=== PATIENT | female | born 1975 | race Caucasian/White ===

== ENCOUNTER 2020-01-13 14:29 | Emergency (ER) | payer OTHER ==
[~2020-01-13] VITALS: Ht 160 cm; Wt 81.6 kg
[2020-01-13 14:42] VITALS: BP 128/77
== END 2020-01-13 15:21 | disposition home or self-care (01) ==
LOC: ER 14:37
DX: L03.211 Cellulitis of face (principal)

== ENCOUNTER 2021-04-06 19:21 | Emergency (ER) | payer OTHER ==
[~2021-04-06] VITALS: Ht 160 cm; Wt 81.6 kg
--- NOTE | 2021-04-06 19:45 | NUR ---
PT BIBS C/O SOB COUGH, FEVER, BODY ACHES, AND SORETHROAT X 3 DAYS "WORSE TODAY". PATIENT DID A AT HOME TEST KIT AND TESTED POSITIVE FOR COVID. PATIENT ALERT AND ORIENTED X3. AMBULATORY WITH NON LABORED BREATHING.
[2021-04-06] MEDS ORDERED: ACETAMINOPHEN ES 500 MG TABLET ONE (19:58)
[2021-04-06] MEDS ORDERED: DEXAMETHASONE SOD PHOSPHATE 10 MG/ML VIAL ONE (19:58)
[2021-04-06] MEDS ORDERED: IV NS 0.9% 500 ML BAG IV ONE (20:00)
[2021-04-06] MEDS ORDERED: DEXAMETHASONE SOD PHOSPHATE 4 MG/ML VIAL IM ONE (20:00)
[2021-04-06] MEDS ORDERED: ACETAMINOPHEN ES 500 MG TABLET PO ONE (20:00)
[2021-04-06] MEDS ORDERED: ACET-2605 PO (20:57)
[2021-04-06] MEDS ORDERED: BENZ-13 PO (20:57)
[2021-04-06] MEDS ORDERED: DEXA6TAB6 PO (20:57)
--- NOTE | 2021-04-06 21:19 | NUR ---
Patient discharged to home in stable condition. Rx and Written and verbal after care instructions given. Patient verbalizes understanding of instruction.
[2021-04-07 01:20] VITALS: BP 111/67
== END 2021-04-06 22:00 | disposition home or self-care (01) ==
LOC: ER 19:24
DX: U07.1 COVID-19 (principal)
CPT/HCPCS: 71045; 96372; 99283; J1100; J7040

== ENCOUNTER 2021-12-29 16:53 | Emergency (ER) | payer OTHER ==
[~2021-12-29] VITALS: Ht 160 cm; Wt 80.7 kg
[~2021-12-29 16:53] MED LIST: ACET-2605 PO; BENZ-13 PO; DEXA6TAB6 PO
[2021-12-29] MEDS ORDERED: ONDANSETRON HCL/PF 4 MG/2 ML VIAL IVP ONE (17:00)
[2021-12-29] MEDS ORDERED: IV NS 0.9% 1,000 ML BAG IV ONE (17:00)
--- NOTE | 2021-12-29 17:04 | NUR ---
BIBS C/O ABDOMINAL PAIN P/S 01/01 STARTED THIS MORNING, +NAUSEA, +DIARRHEA. PT STATED THAT YOSELYN IS LOCATED IN THE MID ABDOMINAL AND THAT IT RADIATES TO HER BACK. VITALS ARE WITHIN NORMAL LIMITS.
[2021-12-29] MEDS ORDERED: ONDANSETRON HCL/PF 4 MG/2 ML VIAL ONE (17:06)
--- NOTE | 2021-12-29 17:11 | NUR ---
IV ESTABLISHED R AC 20G. LABS DRAWN AND COLLECTED AT BEDSIDE.
--- NOTE | 2021-12-29 17:19 | NUR ---
URINE COLLECTED AND SENT
[2021-12-29 17:42] LABS: BASOPHILS # (AUTO) 0.1 K/uL (0.0-0.2); BASOPHILS % (AUTO) 0.6 % (0.0-2.0); EOSINOPHILS % (AUTO) 1.5 % (0.0-6.0); HEMATOCRIT 32 % (33-45); HEMOGLOBIN 9.8 g/dL (11.5-14.8); LYMPHOCYTES # (AUTO) 1.7 K/uL (0.8-4.8); LYMPHOCYTES % (AUTO) 18.6 % (20.0-44.0); MEAN CORPUSCULAR HGB CONC 31 g/dl (31.0-36.0); MEAN CORPUSCULAR VOLUME 72 fL (82-100); MONOCYTES # (AUTO) 0.7 K/uL (0.1-1.30); MONOCYTES % (AUTO) 8.2 % (2.0-12.0); NEUTROPHILS # (AUTO) 6.4 K/uL (1.8-8.9); NEUTROPHILS % (AUTO) 71.1 % (43.0-81.0); PLATELET COUNT (AUTO) 243 K/uL (150-450); RED BLOOD CELL COUNT(AUTO) 4.41 MIL/uL (4.0-5.2)
[2021-12-29 17:56] LABS: BILIRUBIN,URINE NEGATIVE (NEGATIVE); COLOR,URINE YELLOW (YELLOW); LEUKOCYTE ESTERASE ,URINE NEGATIVE (NEGATIVE); NITRITE, URINE NEGATIVE (NEGATIVE); PH,URINE 6.5 (5.0-8.0); PROTEIN,URINE NEGATIVE (NEGATIVE); UGLUCOSE NEGATIVE (NEGATIVE); UROBILINOGEN,URINE 0.2 EU/dL (0.2)
[2021-12-29 18:02] LABS: CALCIUM, SERUM 7.9 mg/dL (8.5-10.1); CREATININE 0.6 mg/dL (0.6-1.3); POTASSIUM 3.3 mmol/L (3.5-5.1)
[2021-12-29 18:13] LABS: ALBUMIN 2.9 g/dL (3.4-5.0); BILIRUBIN,DIRECT 0.1 mg/dL (0.0-0.2); BILIRUBIN,TOTAL 0.2 mg/dL (0.2-1.0); TOTAL PROTEIN, SERUM 6.8 g/dL (6.4-8.2)
[2021-12-29] MEDS ORDERED: LIDOCAINE VISCOUS 2% UD 15 ML UDC ONE (18:29)
[2021-12-29] MEDS ORDERED: MAG HYDROX/AL HYDROX/SIMETH 30 ML UDC ONE (18:29)
[2021-12-29] MEDS ORDERED: FAMOTIDINE/PF INJ 20 MG/2 ML VIAL IV ONE ×2 (18:29→18:30)
[2021-12-29] MEDS ORDERED: MAG HYDROX/AL HYDROX/SIMETH 30 ML UDC PO ONE (18:30)
[2021-12-29] MEDS ORDERED: LIDOCAINE VISCOUS 2% UD 15 ML UDC MM ONE (18:30)
[2021-12-29] MEDS ORDERED: FAMO-131 PO (19:48)
[2021-12-29] MEDS ORDERED: ONDA4TAB5 PO (19:48)
[2021-12-29 19:54] LABS: EOSINOPHILS % (MANUAL) 1 % (0-4); LYMPHOCYTES % (MANUAL) 15 % (16-48); MONOCYTES % (MANUAL) 8 % (0-11.0); NEUTROPHILS % (MANUAL) 76 (42-76)
--- NOTE | 2021-12-29 20:04 | NUR ---
Patient discharged to home in stable condition. Written and verbal after care instructions given. Patient verbalizes understanding of instruction. IV removed. Catheter intact and site benign. Pressure and 4x4 applied to site. No bleeding noted. Pt ambulatory with a steady gait
[2021-12-29 20:09] VITALS: BP 118/89
== END 2021-12-29 20:09 | disposition home or self-care (01) ==
LOC: ER 16:55
DX: R10.13 Epigastric pain (principal); R11.0 Nausea; Z79.899 Other long term (current) drug therapy
CPT/HCPCS: 99284; 96374; 96361; 96375; 85025; 80048; 83690; 80076; 84703; 81003; 36415; 85007; J3490; J2405; J7030

== ENCOUNTER 2023-01-28 14:29 | Emergency (ER) | payer OTHER ==
[~2023-01-28] VITALS: Ht 160 cm; Wt 78.0 kg
[~2023-01-28 14:29] MED LIST changes: +FAMO-131 PO; +ONDA4TAB5 PO
[2023-01-28] MEDS ORDERED: ACETAMINOPHEN 325 MG TABLET PO ONE (16:00)
[2023-01-28] MEDS ORDERED: ACETAMINOPHEN 325 MG TABLET ONE (16:04)
[2023-01-28] MEDS ORDERED: BENZ-13 PO (16:19)
[2023-01-28] MEDS ORDERED: TYL2T PO (16:19)
[2023-01-28 16:56] VITALS: BP 115/70; TEMP 98.7; O2SAT 98
== END 2023-01-28 16:40 | disposition home or self-care (01) ==
LOC: ER 14:33
DX: J12.9 Viral pneumonia, unspecified (principal); Z20.822 Contact with and (suspected) exposure to COVID-19
CPT/HCPCS: 99284; 71045; 87426; 87804 ×2; C9803

== ENCOUNTER 2024-12-11 17:26 | Emergency (ER) | payer OTHER ==
[~2024-12-11] VITALS: Ht 157.5 cm; Wt 81.6 kg
[~2024-12-11 17:26] MED LIST changes: +TYL2T PO
[2024-12-11 17:38] VITALS: TEMP 98.4
[2024-12-11] MEDS: KETOROLAC TROMETHAMINE INJ 30 MG/ML VIAL IM ONE (18:00)
[2024-12-11] MEDS ORDERED: KETOROLAC TROMETHAMINE INJ 30 MG/ML VIAL ONE (18:30)
[2024-12-11] MEDS ORDERED: IBUP-1953 PO (18:57)
[2024-12-11 19:24] VITALS: BP 121/68; O2SAT 97
== END 2024-12-11 19:15 | disposition home or self-care (01) ==
LOC: ER 17:32
DX: M79.602 Pain in left arm (principal); G89.29 Other chronic pain; Z79.52 Long term (current) use of systemic steroids
CPT/HCPCS: 99283; 96372; 73080; J1885

== ENCOUNTER 2025-02-28 21:06 | Emergency (ER) | payer OTHER ==
[~2025-02-28] VITALS: Ht 157.5 cm; Wt 77.1 kg
[~2025-02-28 21:06] MED LIST changes: +IBUP-1953 PO
[2025-02-28] MEDS ORDERED: KETOROLAC TROMETHAMINE INJ 30 MG/ML VIAL ONE (22:27)
[2025-02-28] MEDS: KETOROLAC TROMETHAMINE INJ 30 MG/ML VIAL IM ONE (22:41)
[2025-02-28 22:58] VITALS: BP 130/70; TEMP 98.5; O2SAT 98
== END 2025-02-28 23:04 | disposition home or self-care (01) ==
LOC: ER 21:09
DX: R20.2 Paresthesia of skin (principal); I50.9 Heart failure, unspecified; J44.9 Chronic obstructive pulmonary disease, unspecified; Z79.52 Long term (current) use of systemic steroids
CPT/HCPCS: 99283; 96372; J1885